=== PATIENT | female | born 1975 | race Caucasian/White ===

== ENCOUNTER 2018-08-04 11:23 | Outpatient (REF) | payer BC, SELFPAY ==
--- NOTE | 2018-08-04 08:00 | PAPFT_PTH ---
PATIENT: SAMIRA JMAES LOC: [facility] U#:[id number] AGE/SX: 42/F ROOM: RE08/04/[address]: Carolina Pearson : 1975 BED: DIS: 08/04/2018 SPEC #: [id number] RECD: 08/05/18 12:53 STATUS: CAROL REQ #: [id number] CHAUNCEY: 08/04/18 08:[address]: Carolina Pearson DEPT: [facility] Cytology RECD BY: Bridget Mccallum Tissues: 1 - CX/ENDOCX FOR PAP SMEARS Procedures: PAP THIN PREP/[facility] Screening Comments: [id number]
== END 2018-08-04 11:43 ==
LOC: NCHCN 11:23
PROVIDERS: PCP Family Medicine; Visit Provider Family Medicine
DX: Z00.00 Encounter for general adult medical examination without abnormal findings (principal); Z12.4 Encounter for screening for malignant neoplasm of cervix
CPT/HCPCS: 88142